=== PATIENT | female | born 1970 | race Caucasian/White ===

== ENCOUNTER 2017-01-30 15:04 | Emergency (ER) | payer OTHER ==
[~2017-01-30] VITALS: Ht 162.6 cm; Wt 63.5 kg
--- NOTE | 2017-01-30 15:17 | NUR ---
PT AMBULATORY TO ER BED 12. C/O NAUSEA AND VOMITING SINCE THIS MORNING, NAUSEA AND VOMITING. ADMITS TO DRINKING WHISKEY LAST NIGHT. STATES NOT A DRINKER. APPEARS ANXIOUS. TACHY OTHERWISE STABLE VITALS. AWAITING MD GARCIA.
--- NOTE | 2017-01-30 15:28 | NUR ---
DR GILLILAND AT BEDSIDE FOR EVAL.
[2017-01-30] MEDS ORDERED: ONDANSETRON HCL/PF 4 MG/2 ML VIAL ONE (15:32)
[2017-01-30] MEDS ORDERED: LORAZEPAM INJ 2 MG/ML VIAL ONE (15:33)
[2017-01-30] MEDS: IV NS 0.9% 1,000 ML IV ONE (15:43)
[2017-01-30] MEDS: ONDANSETRON HCL/PF - ER 4 MG/2 ML VIAL IV ONE (15:44)
[2017-01-30] MEDS: LORAZEPAM INJ 2 MG/ML VIAL IV ONE (15:46)
--- NOTE | 2017-01-30 17:31 | NUR ---
Patient discharged to home in stable condition. Written and verbal after care instructions given. Patient verbalizes understanding of instruction.IV removed. Catheter intact and site benign. Pressure and 4x4 applied to site. No bleeding noted.
[2017-01-30 17:32] VITALS: BP 120/77
== END 2017-01-30 19:36 | disposition home or self-care (01) ==
LOC: ER 15:14
DX: R11.2 Nausea with vomiting, unspecified (principal); F10.129 Alcohol abuse with intoxication, unspecified; F41.9 Anxiety disorder, unspecified
CPT/HCPCS: 96374; 96375; 99284; A4606; J2060; J2405 ×2; J7030; Z7610

== ENCOUNTER → 2018-10-06 | Emergency (ER) | payer OTHER ==
[~2018-10-06] VITALS: Ht 162.6 cm; Wt 61.2 kg
[~2018-10-06] MED LIST: IV NS 0.9% 1,000 ML BAG IV ONE
--- NOTE | 2018-10-06 17:40 | NUR ---
SKIN RASH TO LEFT SIDE OF THE NECK AND LEFT SHOULDER ALSO C/O WEIRD SENSATION FROM LOWER TO UPPER EXTREMITIES X 2 MOS. PATIENT A/OX4, BREATHING EVEN AND UNLABORED, NO SOB NOTED, DENIES PAIN AT THIS TIME. PLACED ON THE MONITOR.
--- NOTE | 2018-10-06 19:11 | NUR ---
IV LINE ESTABLISHED ON LEFT AC G20, IV FLUID STARTED.
--- NOTE | 2018-10-06 19:21 | NUR ---
ENDORSED TO CATERINA MUSE FOR DELIA.
[2018-10-06 20:01] VITALS: BP 124/83
== END | disposition home or self-care (01) ==
LOC: ER 17:33
DX: F41.9 Anxiety disorder, unspecified (principal); R21 Rash and other nonspecific skin eruption; F10.10 Alcohol abuse, uncomplicated; Y90.9 Presence of alcohol in blood, level not specified
CPT/HCPCS: 99284; A6403; J7030